=== PATIENT | female | born 1965 | race Caucasian/White ===

== ENCOUNTER 2017-09-08 00:35 | Emergency (ER) | payer BC, SELFPAY ==
[2017-09-08 00:37] VITALS: BP 152/84; PULSE 77; RESP 16; TEMP 36.6; O2SAT 97; BMI 28.3
[2017-09-08 00:40] VITALS: O2SAT 98
--- NOTE | 2017-09-08 00:54 | RAD_ITS ---
STUDY: X-RAY CHEST REASON FOR EXAM: Female, 52 years old. Shortness of breath. History of asthma and COPD. TECHNIQUE: PA and lateral chest. COMPARISON: None. FINDINGS: Lungs are hyperinflated. Subtle patchy mid and lower lung opacities probably representing subsegmental atelectasis. No effusions. No pneumothorax. Possible pleural scar left lung apex. Normal size heart. Normal mediastinum and aurea. Normal visualized pulmonary arteries. Normal visualized aortic arch and descending thoracic aorta. Normal visualized thoracic spine. Normal visualized ribs, clavicles, and shoulders. There is no demonstrated abnormality of the visualized soft tissue structures of the upper abdomen. RAD/Chest PA and Lateral IMPRESSION: No acute cardiopulmonary disease. Hyperinflation suggestive of COPD. Left apical density probably representing pleural scar. If old studies are not available to assess stability recommend correlation with nonemergent noncontrast CT chest. Electronically Signed: Sukh Anton MD at 2:21 EDT , Service support ,
--- NOTE | 2017-09-08 00:54 | EKG12_ITS ---
Test Reason : SOB Blood Pressure : / mmHG Vent. Rate : 072 BPM Atrial Rate : 072 BPM P-R Int : 142 ms QRS Dur : 086 ms QT Int : 402 ms P-R-T Axes : 066 080 031 degrees QTc Int : 440 ms Normal sinus rhythm Normal ECG Confirmed by MARLEN ARAMBULA ([id number]), editor publications TOM MATTHEWS ([id number]) on 09/21/2017 5:30:00 PM Referred By: CARLY Confirmed By:MARLEN ARAMBULA
[2017-09-08 01:01] VITALS: O2SAT 97
[2017-09-08 01:01] LABS: Absolute Lymphocyte Count 2.23 X10^3/ul (0.83-4.51); Basophil# 0.06 X10^3/uL; Basophil% 0.5 % (0-1); Eosinophil# 0.24 X10^3/uL; Hematocrit 39.5 % (37-47); Hemoglobin 13.4 g/dl (12.0-15.0); Lymphocyte # 2.23 X10^3/ul (4.0); Lymphocyte % 18.2 % (19-41); Mean Corp Hgb Conc 33.9 g/gl (32-36); Mean Corpuscular Hgb 28.7 pg (27.0-32.0); Mean Corpuscular Volume 84.6 fL (81-99); Mean Platelet Vol. 9.5 fl (6.2-12.0); Monocyte# 0.78 X10^3/uL; Monocyte% 6.4 % (0-10); Neutrophil # 8.95 X10^3/uL (2.7-7.7); Neutrophil % 72.7 % (47-70); Platelet Count 329 K/mm3 (150-450); RBC Distribution Width CV 12.6 % (11.6-14.6); RBC Distribution Width SD 38.5 fl (35.1-43.9); Red Blood Count 4.67 M/mm3 (4.2-5.4); White Blood Count 12.3 K/mm3 (4.4-11.0)
[2017-09-08 01:02] LABS: POSITIVE COUNT NO; POSITIVE DIFFERENTIAL NO; POSITIVE MORPHOLOGY NO
[2017-09-08] MEDS: Aspirin 81 MG TAB.CHEW 324 MG PO (01:21)
[2017-09-08 01:24] LABS: Anion Gap 8 (5-15); BUN 5 mg/dL (7-18); Calcium,Total 8.3 mg/dL (8.5-10.1); Chloride 107 mmol/L (98-107); EST Glomerular Filtration Rate 62 mL/min (>60); Est Glom Filt Rate - Afr Amer 75 mL/min (>60); Estimated Creatinine Clearance 50.22 ml/min; Glucose 97 mg/dL (74-106); Potassium 3.1 mmol/L (3.5-5.1); Sodium Level 138 mmol/L (136-145)
--- NOTE | 2017-09-08 02:36 | ED.DCSUM_ITS ---
- ER Visit Summary Date of Service: 09/08/17 Chief Complaint: Shortness of breath History of Present Illness: The patient is a 52 F who presents with chest pain and shortness of breath. She was at work. She was doing light activity. 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 She had sudden onset of shortness of breath and chest pressure. She states it was very hot in the shop she was working. She describes her symptoms as it felt like someone was sitting on my chest. She states she became very diaphoretic and had near syncopal episode. She denies any vomiting. She has had some recent diarrhea. She denies any recent illness. A family history of coronary disease. She states that her mother of CHF and first began to have heart problems in her 50s. She is also a smoker and has a history of high cholesterol. Physical Examination: Afebrile vitals are stable Moist because membranes Heart regular rate and rhythm Lungs are clear Abdomen soft Normal color Alert Test Results: EKG shows sinus rhythm at a rate of 72. Labs notable for white blood cell count 12.3, potassium 3.1. Chest x-ray shows likely pleural scarring no acute process. Emergency Department Course and Treatment: She was placed on the manager monitoring and given aspirin. Given her chest pain shortness of breath diaphoresis near syncope I am concerned that this may have been angina. She does have risk factors. Her MADDISON risk score is 1 but her heart score is 4. Therefore I do feel she should be admitted for repeat enzymes serial EKGs and possible stress testing. Treatment Plan: [] Disposition: Admit Impression: Chest pain Shortness of breath This note was generated with [employer]or Be[employer] dictation software. It may contain incorrect words, spelling, and punctuation that were not noted in review of the chart prior to signing ED Disposition - Plan for ED Patient: Chief Complaint: Shortness of Breath Referrals: Care Physician,No Primary [Primary Care Provider] -
--- NOTE | 2017-09-08 02:55 | EKG12_ITS ---
Test Reason : REPEAT CP Blood Pressure : / mmHG Vent. Rate : 057 BPM Atrial Rate : 057 BPM P-R Int : 144 ms QRS Dur : 096 ms QT Int : 438 ms P-R-T Axes : 074 078 041 degrees QTc Int : 426 ms Sinus bradycardia Otherwise normal ECG Confirmed by MARLEN ARAMBULA ([id number]), design editor TOM MATTHEWS ([id number]) on 09/21/2017 5:30:38 PM Referred By: CARLY Confirmed By:MARLEN ARAMBULA
[2017-09-08 03:09] VITALS: BP 146/76; PULSE 65; RESP 16; O2SAT 98
--- NOTE | 2017-09-08 04:51 | ED.DEP ---
ED Disposition - Plan for ED Patient: Chief Complaint: Shortness of Breath Instructions: Warning Signs of a Heart Attack Prescriptions: Albuterol Inhaler [Ventolin Hfa] 1 - 2 puff INHALATION Q4H PRN PRN #1 inhaler PRN Reason: Wheezing Referrals: Care Physician,No Primary [Primary Care Provider] - Nick Landa MD [STAFF PHYSICIAN] -
[2017-09-08 04:53] VITALS: BP 131/87; PULSE 88; RESP 16; O2SAT 97
--- NOTE | 2017-09-09 15:01 | CM.ED ---
ED CALLBACK: Follow-up call placed to patient. No answer and no voicemail option offered.
== END 2017-09-08 04:57 | disposition home or self-care (01) ==
LOC: ED 01:05
PROVIDERS: Emergency Provider Emergency Medicine
DX: R07.9 Chest pain, unspecified (principal); R06.02 Shortness of breath; E78.00 Pure hypercholesterolemia, unspecified; J44.9 Chronic obstructive pulmonary disease, unspecified; F17.200 Nicotine dependence, unspecified, uncomplicated; Z82.49 Family history of ischemic heart disease and other diseases of the circulatory system
CPT/HCPCS: 71046; 80048; 84484; 85025; 93005; 99285; A4216

== ENCOUNTER 2019-02-23 10:16 | Emergency (ER) | payer SELFPAY ==
[2019-02-23 10:18] VITALS: BP 134/84; PULSE 85; RESP 32; TEMP 36.6; O2SAT 97; BMI 25.2
--- NOTE | 2019-02-23 10:29 | RAD_ITS ---
STUDY: X-RAY CHEST REASON FOR EXAM: Female, 53 years old. Chest pressure. TECHNIQUE: Single AP portable view of the chest. COMPARISON: Comparison is made with prior study dated September 08, 2017. FINDINGS: EKG electrodes are seen. The lungs are clear and expanded. There is no demonstrated pleural abnormality. Normal size heart. Normal mediastinum and aurea. Normal visualized pulmonary arteries. Normal visualized aortic arch and descending thoracic aorta. Normal visualized thoracic spine. Normal visualized ribs, clavicles, and shoulders. There is no demonstrated abnormality of the visualized soft tissue structures of the upper abdomen. RAD/Chest 1 View (Portable) IMPRESSION: Normal x-ray examination of the chest. Electronically Signed: Torito Blakely, at 11:01 EST , Service support ,
--- NOTE | 2019-02-23 10:29 | EKG12_ITS ---
Test Reason : REPEAT Blood Pressure : / mmHG Vent. Rate : 060 BPM Atrial Rate : 060 BPM P-R Int : 130 ms QRS Dur : 088 ms QT Int : 412 ms P-R-T Axes : 070 073 030 degrees QTc Int : 412 ms Normal sinus rhythm Normal ECG Confirmed by THERESA CAMILO, CRISTHIAN ([id number]), acquisition editor TOM MATTHEWS ([id number]) on 03/01/2019 1:09:01 PM Referred By: FOREST Confirmed By:SHAD CARDENAS MD
--- NOTE | 2019-02-23 10:30 | ED.VIS.GEN ---
History of Present Illness Chief Complaint: Chest Pain Informant: Patient Onset: Today Context: Sudden Onset Current Severity: Moderate Maximum Severity: Severe Narrative: Patient presents with rather rapid onset of chest pain which she describes as a heaviness and pressure in the mid portion of her chest as if someone is pushing on her chest. She also feels short of breath. She states she was at work at the time but not doing anything excessive and not exposed to any chemicals. She states after the pain started her whole body felt numb. She denies any personal history of cardiac disease but states both parents had problems with her heart. Patient does admit to a history of high cholesterol and COPD. - Past Medical History (1) COPD (chronic obstructive pulmonary disease) Status: Chronic (2) High cholesterol Status: Chronic Past Medical History - Allergies and Home Meds Allergies/Adverse Reactions: Allergies Penicillins [PCN] Allergy (Verified 02/23/19 10:17) Unknown Sulfa (Sulfonamide Antibiotics) Allergy (Verified 02/23/19 10:17) Unknown tramadol Allergy (Verified 02/23/19 10:17) Unknown Primary Care Physician: Jurgen Neves MD [STAFF PHYSICIAN] - As soon as possible Prior records reviewed: Yes Smoking Status: Current every day smoker Review of Systems General: Denies: Chills, Fever Eyes: Denies: Visual changes - bilaterally ENT: Denies: Bilateral ear pain Cardiovascular: Reports: Chest pain. Denies: Palpitations Respiratory: Reports: Dyspnea. Denies: Cough Gastrointestinal: Denies: Abdominal pain, Nausea, Vomiting Musculoskeletal: Denies: Back pain, Extremity Pain Skin: Denies: Rash Neurological: Reports: Numbness Hematologic: Denies: Easy bruising, Easy bleeding Allergy: Denies: Uticaria Physical Exam Vital Signs/Narrative: Vital Signs Temp Pulse Resp BP Pulse Ox 02/23/19 10:18 97.8 F 85 32 H 134/84 H 97 Inital Vital Signs reviewed: Yes General: Well nourished, Well developed Head: Normocephalic ENT: Moist mucous membranes Neck: Supple Cardiovascular: Regular rate, Regular rhythm Respiratory: No distress, CTA bilaterally Abdomen: Soft, Nontender Extremities: Nontender, No edema Skin: Normal color Neurological: Alert, Oriented x3, Normal Strength, Normal Sensation, - - Strong and equal pulses throughout. Psychological: - - Anxious Diagnostic/Tx/Re-eval Impressions Chest X-Ray 02/23/19 10:29 IMPRESSION: Normal x-ray examination of the chest. Electronically Signed: Torito Blakely, at 11:01 EST , Service support , 02/23/19 10:29 Chest 1 View (Portable) [RAD] Stat Laboratory Results 02/23/19 02/23/19 02/23/19 10:55 10:55 10:55 WBC 8.8 RBC 5.06 Hgb 14.6 Hct 43.4 MCV 85.8 MCH 28.9 MCHC 33.6 RDW Std Deviation 42.2 RDW Coeff of Gabe 13.5 Plt Count 309 MPV 8.8 Immature Gran % (Auto) 0.200 Neut % (Auto) 68.9 Lymph % (Auto) 22.8 [place] % (Auto) 6.6 Eos % (Auto) 0.9 Baso % (Auto) 0.6 Absolute Neuts (auto) 6.1 Absolute Lymphs (auto) 2.01 Nucleated RBC % 0 D-Dimer Quant (PE/DVT) 0.41 Sodium 137 Potassium 3.7 Chloride 108 H Carbon Dioxide 26.0 Anion Gap 3 L BUN 6 L Creatinine 0.80 Estim Creat Clear Calc 62.07 Est GFR (MDRD) Af Amer 96 Est GFR (MDRD) Non-Af 80 BUN/Creatinine Ratio 7.5 L Glucose 89 Calcium 8.6 Troponin I < 0.015 02/23/19 14:05 WBC RBC Hgb Hct MCV MCH MCHC RDW Std Deviation RDW Coeff of Gabe Plt Count MPV Immature Gran % (Auto) Neut % (Auto) Lymph % (Auto) [place] % (Auto) Eos % (Auto) Baso % (Auto) Absolute Neuts (auto) Absolute Lymphs (auto) Nucleated RBC % D-Dimer Quant (PE/DVT) Sodium Potassium Chloride Carbon Dioxide Anion Gap BUN Creatinine Estim Creat Clear Calc Est GFR (MDRD) Af Amer Est GFR (MDRD) Non-Af BUN/Creatinine Ratio Glucose Calcium Troponin I < 0.015 - EKG Initial EKG Interpretation: Sinus Rhythm - Sinus at 81 with no acute ischemia. Follow-up EKG Interpretation: Sinus Rhythm - Sinus at 60 with no acute ischemia. - Medical Decision Making Patient was given aspirin 1 nitro with EMS. She was given 1 additional nitro here. Repeat evaluation she is resting comfortably. I discussed with her my desire to admit to the hospital for further cardiac work-up but she has no one available to watch her teenage daughter. She did agree to stay for a 3-hour repeat EKG and blood work. These are also unremarkable. Patient will be discharged at this time. She will be referred to the next doc on no doc list for follow-up. She was encouraged to return if her symptoms worsen. ED Disposition - Plan for ED Patient: Disposition: Home or Assisted Living Diagnosis: Chest pain Instructions: CHEST PAIN, Uncertain Cause Referrals: Jurgen Neves MD [STAFF PHYSICIAN] - As soon as possible
[2019-02-23 10:51] VITALS: BP 175/71; PULSE 71
[2019-02-23] MEDS: Nitroglycerin SL (ED/IMG/CATH) 0.4 MG TABLET SUBLINGUAL (10:51)
[2019-02-23] MEDS: 0.9% Normal Saline 1,000 ML 150 ML IV (10:52)
[2019-02-23 11:05] LABS: Absolute Lymphocyte Count 2.01 X10^3/uL (0.83-4.51); Absolute Neutrophil Count 6.1 X10^3/uL (2.0-7.7); Basophil# 0.05 X10^3/uL; Basophil% 0.6 % (0-1); Eosinophil# 0.08 X10^3/uL; Eosinophils% 0.9 % (0-5); Hematocrit 43.4 % (37-47); Hemoglobin 14.6 g/dL (12.0-15.0); Lymphocyte # 2.01 X10^3/ul (4.0); Lymphocyte % 22.8 % (19-41); Mean Corp Hgb Conc 33.6 g/dL (32-36); Mean Corpuscular Hgb 28.9 pg (27.0-32.0); Mean Corpuscular Volume 85.8 fL (81-99); Mean Platelet Vol. 8.8 fl (6.2-12.0); Monocyte# 0.58 X10^3/uL; Monocyte% 6.6 % (0-10); NRBC Flagged by Analyzer 0 % (0-5); Neutrophil # 6.06 X10^3/uL (2.7-7.7); Neutrophil % 68.9 % (47-70); Platelet Count 309 K/mm3 (150-450); RBC Distribution Width CV 13.5 % (11.6-14.6); RBC Distribution Width SD 42.2 fl (35.1-43.9); Red Blood Count 5.06 M/mm3 (4.2-5.4); White Blood Count 8.8 K/mm3 (4.4-11.0)
[2019-02-23 11:18] LABS: Anion Gap 3 (5-15); BUN 6 mg/dL (7-18); BUN/Creat Ratio 7.5 RATIO (10-20); Calcium,Total 8.6 mg/dL (8.5-10.1); Chloride 108 mmol/L (98-107); EST Glomerular Filtration Rate 80 mL/min (>60); Est Glom Filt Rate - Afr Amer 96 mL/min (>60); Estimated Creatinine Clearance 62.07 ml/min; Glucose 89 mg/dL (74-106); Potassium 3.7 mmol/L (3.5-5.1); Sodium Level 137 mmol/L (136-145)
[2019-02-23 11:19] LABS: D-Dimer Quantitative (DVT/PE) 0.41 FEU/ug/m (0.27-0.49)
[2019-02-23 11:54] VITALS: BP 162/88; PULSE 76; RESP 16; O2SAT 98
--- NOTE | 2019-02-23 14:00 | EKG12_ITS ---
Test Reason : CP Blood Pressure : / mmHG Vent. Rate : 081 BPM Atrial Rate : 081 BPM P-R Int : 120 ms QRS Dur : 078 ms QT Int : 364 ms P-R-T Axes : 081 082 033 degrees QTc Int : 422 ms Normal sinus rhythm Normal ECG Confirmed by THERESA CAMILO, CRISTHIAN ([id number]), editor trade journal TOM MATTHEWS ([id number]) on 03/01/2019 1:09:21 PM Referred By: REBA Confirmed By:SHAD CARDENAS MD
[2019-02-23 14:41] VITALS: BP 134/63; PULSE 72; RESP 18; O2SAT 96
[2019-02-23 15:05] VITALS: BP 149/77; PULSE 69; RESP 18; O2SAT 99
== END 2019-02-23 15:11 | disposition home or self-care (01) ==
PROVIDERS: Emergency Provider Emergency Medicine
DX: R07.89 Other chest pain (principal); R06.00 Dyspnea, unspecified; R20.0 Anesthesia of skin; J44.9 Chronic obstructive pulmonary disease, unspecified; E78.00 Pure hypercholesterolemia, unspecified; F17.200 Nicotine dependence, unspecified, uncomplicated
CPT/HCPCS: 71045; 80048; 84484; 85025; 85379; 93005; 96360; 96361; 99285; J7030; A4216

== ENCOUNTER 2019-11-25 12:04 | Emergency (ER) | payer BC, SELFPAY ==
[2019-11-25 12:06] VITALS: BP 151/100; PULSE 92; RESP 24; TEMP 36.9; O2SAT 97; BMI 26.2
--- NOTE | 2019-11-25 12:12 | CT_ITS ---
STUDY: CT ABDOMEN AND PELVIS WITHOUT CONTRAST REASON FOR EXAM: Female, 54 years old. RT FLANK PAIN ACROSS BACK X 2 HR. Hx of kidney stones, COPD and HLD RADIATION DOSAGE (If Supplied By Facility): CTDIvol = ( 6.26 ) mGy, DLP = ( 289.22 ) mGycm TECHNIQUE: Transaxial images were obtained from the dome of the diaphragm to the symphysis pubis without oral contrast, and without intravenous contrast. Sagittal and coronal images were reconstructed. Individualized dose optimization techniques were used for this CT. COMPARISON: Comparison is made with prior examination dated 04/02/2011. FINDINGS: The visualized lung bases are unremarkable. The visualized portions of the heart are within normal limits. Normal liver. Normal gallbladder and extrahepatic biliary system. There is a benign calcified granuloma of the spleen. Normal pancreas. Normal bilateral adrenal glands. Normal right kidney. Normal left kidney. There is a small hiatal hernia. Normal small intestine. Normal colon. The appendix is visualized and appears normal. There is diffuse atherosclerotic calcification of the abdominal aorta, without a demonstrated aneurysm. Normal inferior vena cava. Normal retroperitoneum. Normal urinary bladder. Normal abdominal wall. Normal osseous structures. CT/Abdomen/Pelvis without Cont IMPRESSION: Normal unenhanced CT of the abdomen and pelvis. Electronically Signed: Torito Blakely, at 12:58 EDT , Service support ,
[2019-11-25] MEDS: proMETHazine 25 MG/ML Syringe 6.25 MG IV (12:19)
[2019-11-25 12:27] LABS: Absolute Lymphocyte Count 3.11 X10^3/uL (0.83-4.51); Absolute Neutrophil Count 5.6 X10^3/uL (2.0-7.7); Basophil# 0.09 X10^3/uL; Basophil% 0.9 % (0-1); Eosinophil# 0.23 X10^3/uL; Eosinophils% 2.3 % (0-5); Hematocrit 44.1 % (37-47); Hemoglobin 14.5 g/dL (12.0-15.0); Lymphocyte # 3.11 X10^3/ul (4.0); Lymphocyte % 31.7 % (19-41); Mean Corp Hgb Conc 32.9 g/dL (32-36); Mean Corpuscular Hgb 28.7 pg (27.0-32.0); Mean Corpuscular Volume 87.3 fL (81-99); Mean Platelet Vol. 8.7 fl (6.2-12.0); Monocyte# 0.73 X10^3/uL; Monocyte% 7.4 % (0-10); NRBC Flagged by Analyzer 0 % (0-5); Neutrophil # 5.63 X10^3/uL (2.7-7.7); Neutrophil % 57.5 % (47-70); Platelet Count 451 K/mm3 (150-450); RBC Distribution Width CV 12.6 % (11.6-14.6); Red Blood Count 5.05 M/mm3 (4.2-5.4); White Blood Count 9.8 K/mm3 (4.4-11.0)
[2019-11-25] MEDS: Morphine 4 MG/ML Syringe IV (12:29)
[2019-11-25 12:43] LABS: Anion Gap 6 (5-15); BUN 4 mg/dL (7-18); BUN/Creat Ratio 3.9 RATIO (10-20); Calcium,Total 8.8 mg/dL (8.5-10.1); Chloride 106 mmol/L (98-107); Creatinine, Serum 1.03 mg/dL (0.55-1.02); EST Glomerular Filtration Rate 59 mL/min (>60); Est Glom Filt Rate - Afr Amer 72 mL/min (>60); Estimated Creatinine Clearance 47.66 ml/min; Glucose 112 mg/dL (74-106); Potassium 3.6 mmol/L (3.5-5.1); Sodium Level 138 mmol/L (136-145)
[2019-11-25 13:14] LABS: Bacteria 0 SEEN /hpf (None Seen); Mucous, Urine 0 SEEN /hpf (<or=2+); Red Blood Cells-Urine 0 SEEN /hpf (0-5); White Blood Cells 0 SEEN /hpf (0-5)
--- NOTE | 2019-11-25 13:16 | ED.VIS.GEN ---
History of Present Illness Chief Complaint: Flank Pain Informant: Patient Onset: Today Context: Sudden Onset Timing: Continuous Quality: Sharp and stabbing Location: Right flank Current Severity: Severe Maximum Severity: Severe Worsened by: Nothing Relieved by: Nothing Associated Symptoms: Denies Narrative: D4-year-old female history of kidney stones presents with right flank pain. It started suddenly about an hour prior to arrival. It is sharp and stabbing. It radiates to her right lower back. It is constant. Denies any fevers or chills, chest pain or shortness of breath, lightheadedness or dizziness, numbness tingling or weakness, loss of bowel or bladder function or urinary symptoms. No trauma. No upper respiratory symptoms. Prior similar symptoms: Yes Recent Illness/Hospitalization: No Past Medical History - Allergies and Home Meds Allergies/Adverse Reactions: Allergies Penicillins [PCN] Allergy (Verified 11/25/19 12:20) Unknown Sulfa (Sulfonamide Antibiotics) Allergy (Verified 11/25/19 12:20) Unknown tramadol Allergy (Verified 11/25/19 12:20) Unknown Primary Care Physician: Care Physician,No Primary [Primary Care Provider] - Prior records reviewed: Yes Past Medical History: - - COPD Surgical History: noncontributory Lives: With Family Smoking Status: Current every day smoker Alcohol: Occasional Drugs: None Review of Systems All systems negative except as indicated General: Denies: Chills, Fever, Sweats Eyes: Denies: Visual changes - bilaterally, Diplopia ENT: Denies: Rhinorrhea, Sore throat Cardiovascular: Denies: Chest pain, Palpitations Respiratory: Denies: Dyspnea, Cough, Dyspnea on exertion Gastrointestinal: Reports: Abdominal pain. Denies: Nausea, Vomiting, Diarrhea, Constipation, Melena, Hematochezia Genitourinary: Denies: Dysuria, Hematuria, Frequency Musculoskeletal: Reports: Back pain. Denies: Myalgias, Arthralgias, Neck pain, Swelling, Extremity Pain Skin: Denies: Rash, Wounds Neurological: Denies: Headache, Weakness, Numbness Physical Exam Vital Signs/Narrative: Vital Signs Temp Pulse Resp BP Pulse Ox 11/25/19 12:06 98.5 F 92 24 H 151/100 H 97 Inital Vital Signs reviewed: Yes General: Well nourished, Well developed, No Acute Distress Head: Normocephalic, Atraumatic Eyes: Perrl, EOMI ENT: Moist mucous membranes, No rhinorrhea Neck: Supple, Nontender Cardiovascular: Regular rate, Regular rhythm, No murmurs Respiratory: No distress, CTA bilaterally, Chest nontender Abdomen: Soft, Nontender, Nondistended, Normal bowel sounds Back: Nontender, Normal Inspection. Negative for: CVA tenderness, Spinal tenderness Extremities: Nontender, No edema Skin: Normal color, No rash Neurological: Alert, Oriented x3, Cranial nerves II-XII grossly intact, Normal Strength, Normal Sensation Psychological: Normal affect, Normal Mood Diagnostic/Tx/Re-eval Impressions Abdomen/Pelvis CT 11/25/19 12:12 IMPRESSION: Normal unenhanced CT of the abdomen and pelvis. Electronically Signed: Torito Blakely, at 12:58 EDT , Service support , 11/25/19 12:12 Abdomen/Pelvis without Cont [CT] Stat Laboratory Results 11/25/19 11/25/19 12:11 12:11 WBC 9.8 RBC 5.05 Hgb 14.5 Hct 44.1 MCV 87.3 MCH 28.7 MCHC 32.9 RDW Std Deviation 40.0 RDW Coeff of Gabe 12.6 Plt Count 451 H MPV 8.7 Immature Gran % (Auto) 0.200 Neut % (Auto) 57.5 Lymph % (Auto) 31.7 [place] % (Auto) 7.4 Eos % (Auto) 2.3 Baso % (Auto) 0.9 Absolute Neuts (auto) 5.6 Absolute Lymphs (auto) 3.11 Nucleated RBC % 0 Sodium 138 Potassium 3.6 Chloride 106 Carbon Dioxide 26.0 Anion Gap 6 BUN 4 L Creatinine 1.03 H Estim Creat Clear Calc 47.66 Est GFR (MDRD) Af Amer 72 Est GFR (MDRD) Non-Af 59 L BUN/Creatinine Ratio 3.9 L Glucose 112 H Calcium 8.8 - Medical Decision Making Due to numerous allergies patient given morphine Zofran and fluids. CBC BMP are obtained and both are unremarkable. Urinalysis negative. CT flank shows no acute findings. Repeat exam patient feels improved. Tolerating by mouth. Repeat abdominal exam soft nontender. Patient neurovascular intact. Discussed with her this likely could have been musculoskeletal pain. Will prescribe anti-inflammatories and muscle relaxers advised her to rest and ice and follow-up with her primary care physician. ED Disposition - Plan for ED Patient: Disposition: Home or Assisted Living Diagnosis: Right flank pain, COPD (chronic obstructive pulmonary disease), High cholesterol Instructions: ED Flank Pain Uncertain Cause Prescriptions: cycloBENZAPRine HCl [Flexeril] 10 mg PO TID PRN #20 tab PRN Reason: Muscle Spasm Prescription Printed Hydrocodone Bitart/Apap 5-325 [[place] 5MG-325MG] 1 tab PO Q6H PRN PRN 3 Days #10 tab PRN Reason: Pain Prescription Printed Referrals: Nick Landa MD [STAFF PHYSICIAN] -
[2019-11-25 13:19] LABS: Color, Urine Straw (Yellow); Glucose, Dipstick Normal (Normal); Ketone-Dipstick Negative (Negative); Leukocyte Esterase-Dipstick 25 /ul (Negative); Nitrite-Dipstick Negative (Negative); Occult Blood-Urine Negative /ul (Negative); Protein-Dipstick Negative (Negative); Urine Bilirubin Dipstick Negative (Negative); Urine Clarity Clear (Clear); Urine Urobilinogen Normal (Normal)
[2019-11-25] MEDS: 0.9% Normal Saline 1,000 ML 250 ML IV (13:25)
[2019-11-25 13:26] LABS: Squamous Epithelial Cells - UA 0-5 SEEN /hpf (5-10)
[2019-11-25 13:49] VITALS: PULSE 75; RESP 16; O2SAT 98
== END 2019-11-25 13:49 | disposition home or self-care (01) ==
PROVIDERS: Emergency Provider Physician Assistant Medical
DX: R10.9 Unspecified abdominal pain (principal); J44.9 Chronic obstructive pulmonary disease, unspecified; E78.00 Pure hypercholesterolemia, unspecified; F17.200 Nicotine dependence, unspecified, uncomplicated; Z87.442 Personal history of urinary calculi
CPT/HCPCS: 74176; 80048; 81001; 85025; 96374; 96375; 99284; J7030; A4216

== ENCOUNTER 2021-01-25 21:11 | Emergency (ER) | payer MEDICAID, SELFPAY ==
[2021-01-25 21:12] VITALS: BP 176/96; PULSE 94; RESP 18; TEMP 36.2; O2SAT 99; BMI 27.6
--- NOTE | 2021-01-25 21:49 | CT_ITS ---
STUDY: CT CHEST WITHOUT CONTRAST REASON FOR EXAM: Female, 55 years old. Trauma RADIATION DOSAGE (If Supplied By Facility): CTDIvol = ( 11.53 ) mGy, DLP = ( 406.35 ) mGycm TECHNIQUE: Transaxial imaging was performed without the administration of intravenous contrast material. Individualized dose optimization techniques were used for this CT. COMPARISON: None. FINDINGS: Groundglass nodules. Largest in the right upper lobe measuring 1.3 cm as well as another nodule in the right lung apex measuring 1.7 cm. In the left lung apex measuring 2.5 x 2.2 cm. Lungs are otherwise clear. No pneumothorax. There is no demonstrated pleural abnormality. Normal heart and pericardium. Normal mediastinum. Normal hilar regions. Normal unenhanced pulmonary arteries. Normal aorta arch and descending thoracic aorta. Normal osseous structures. There is no demonstrated abnormality of the visualized upper abdomen. CT/Chest without Contrast IMPRESSION: No acute traumatic findings. Nonspecific groundglass nodules in both upper lobes as above. Unlikely to represent COVID pneumonia given its appearance. Recommend repeat chest CT and 3-6 months to reevaluate Electronically Signed: Napoleon Berry DO at 0:04 EDT Tel , Service support ,
--- NOTE | 2021-01-25 21:49 | CT_ITS ---
STUDY: CT CERVICAL SPINE WITHOUT CONTRAST REASON FOR EXAM: Female, 55 years old. Trauma RADIATION DOSAGE (If Supplied By Facility): CTDIvol = ( 16.31 ) mGy, DLP = ( 306.50 ) mGycm TECHNIQUE: High resolution transaxial imaging was performed without contrast material. Sagittal and coronal images were reconstructed. Individualized dose optimization techniques were used for this CT. COMPARISON: None FINDINGS: Normal craniovertebral junction. Normal anterior atlantoaxial articulation. Normal odontoid process. Normal cervical lordosis. Normal vertebral bodies and posterior osseous elements. C2-3: Normal endplates. Normal disc height and morphology. Normal central canal and intervertebral neuroforamina. C3-4: Normal endplates. Normal disc height and morphology. Normal central canal and intervertebral neuroforamina. C4-5: Normal endplates. Normal disc height and morphology. Normal central canal and intervertebral neuroforamina. C5-6: Normal endplates. Normal disc height and morphology. Normal central canal and intervertebral neuroforamina. C6-7: Normal endplates. Normal disc height and morphology. Normal central canal and intervertebral neuroforamina. C7-T1: Normal endplates. Normal disc height and morphology. Normal central canal and intervertebral neuroforamina. Subtle patchy infiltrates in the upper lobes. CT/Spine Cervical without Contras IMPRESSION: Normal unenhanced CT examination of the cervical spine. Subtle patchy infiltrates in the upper lobes Electronically Signed: Napoleon Berry DO at 23:13 EDT Tel , Service support ,
--- NOTE | 2021-01-25 21:49 | EKG12_ITS ---
Test Reason : DYSRHYTHMIA Blood Pressure : / mmHG Vent. Rate : 072 BPM Atrial Rate : 072 BPM P-R Int : 138 ms QRS Dur : 086 ms QT Int : 394 ms P-R-T Axes : 074 081 -03 degrees QTc Int : 431 ms Normal sinus rhythm Nonspecific ST abnormality Abnormal ECG Confirmed by JACOB CAMILO, JOSHUA ([id number]), industrial editor LITZY GRAYSON ([id number]) on 01/29/2021 8:41:25 AM Referred By: BEATRICE Confirmed By:JOSHUA JAMES MD
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
--- NOTE | 2021-01-25 21:54 | RAD_ITS ---
STUDY: X-RAY - LEFT TIBIA AND FIBULA REASON FOR EXAM: Female, 55 years old. pain TECHNIQUE: 4 view(s) of the tibia and fibula were obtained. COMPARISON: None. FINDINGS: Normal visualized tibia. Normal visualized fibula. The soft tissue structures are unremarkable. RAD/Tibia & Fibula 2 Views IMPRESSION: Normal x-ray examination of the tibia and fibula. Electronically Signed: Napoleon Berry DO at 23:30 EDT Tel , Service support ,
--- NOTE | 2021-01-25 21:54 | RAD_ITS ---
STUDY: X-RAY - RIGHT SHOULDER REASON FOR EXAM: Female, 55 years old. pain TECHNIQUE: 4 view(s) of the shoulder. COMPARISON: None. FINDINGS: Normal glenohumeral articulation. There is degenerative arthrosis of the acromioclavicular joint without inferior osseous spur formation. Normal acromion. Normal humeral head and visualized proximal humerus. The soft tissue structures are unremarkable. Normal visualized pulmonary apex. RAD/Shoulder min 2 Views IMPRESSION: Mild degenerative changes without acute finding Electronically Signed: Napoleon Berry DO at 23:37 EDT Tel , Service support ,
[2021-01-25 22:07] LABS: Absolute Lymphocyte Count 2.61 X10^3/uL (0.83-4.51); Absolute Neutrophil Count 6.9 X10^3/uL (2.0-7.7); Basophil# 0.06 X10^3/uL; Basophil% 0.6 % (0-1); Eosinophil# 0.17 X10^3/uL; Eosinophils% 1.6 % (0-5); Hematocrit 42.3 % (37-47); Hemoglobin 14.5 g/dL (12.0-15.0); Lymphocyte # 2.61 X10^3/ul (0.83-4.51); Lymphocyte % 25.1 % (19-41); Mean Corp Hgb Conc 34.3 g/dL (32-36); Mean Corpuscular Hgb 29.7 pg (27.0-32.0); Mean Corpuscular Volume 86.7 fL (81-99); Mean Platelet Vol. 9.2 fl (6.2-12.0); Monocyte# 0.67 X10^3/uL; Monocyte% 6.4 % (0-10); NRBC Flagged by Analyzer 0 % (0-5); Neutrophil # 6.86 X10^3/uL (2.7-7.7); Platelet Count 395 K/mm3 (150-450); RBC Distribution Width CV 13.2 % (11.6-14.6); RBC Distribution Width SD 41.1 fl (35.1-43.9); Red Blood Count 4.88 M/mm3 (4.2-5.4); White Blood Count 10.4 K/mm3 (4.4-11.0)
[2021-01-25 22:17] LABS: Bacteria 0 SEEN /hpf (None Seen); Mucous, Urine 0 SEEN /hpf (<or=2+); Red Blood Cells-Urine 0 SEEN /hpf (0-5)
[2021-01-25 22:18] LABS: Color, Urine Yellow (Yellow); Glucose, Dipstick Normal (Normal); Ketone-Dipstick Negative (Negative); Leukocyte Esterase-Dipstick 25 /ul (Negative); Nitrite-Dipstick Negative (Negative); Occult Blood-Urine Negative /ul (Negative); Protein-Dipstick Negative (Negative); Urine Bilirubin Dipstick Negative (Negative); Urine Clarity Clear (Clear); Urine Urobilinogen Normal (Normal)
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
[2021-01-25 22:25] LABS: Squamous Epithelial Cells - UA 0-5 SEEN /hpf (5-10); White Blood Cells 0-5 SEEN /hpf (0-5)
[2021-01-25 22:28] LABS: Amphetamine Urine VISTA NEGATIVE (<1000 ng/mL); Barbiturate Urine VISTA NEGATIVE (< 200 ng/mL); Benzodiazepine Urine VISTA NEGATIVE (< 200 ng/mL); Cocaine Urine VISTA NEGATIVE (< 300 ng/mL); Ecstacy Urine VISTA NEGATIVE (< 500 ng/mL); Methadone Urine VISTA NEGATIVE (< 300 ng/mL); PCP Urine VISTA NEGATIVE (< 25 ng/mL); THC Urine VISTA NEGATIVE (< 50 ng/mL); Vista UDS pH Range 6
[2021-01-25 22:43] LABS: AST(SGOT) 14 U/L (15-37); Alanine Aminotransfer ALT/SGPT 13 U/L (13-56); Albumin, Serum 3.7 g/dL (3.2-5.0); Alkaline Phosphatase 81 U/L (45-117); Anion Gap 8 (5-15); BUN 11 mg/dL (7-18); BUN/Creat Ratio 11.1 RATIO (10-20); Chloride 106 mmol/L (98-107); Creatinine, Serum 0.99 mg/dL (0.55-1.02); EST Glomerular Filtration Rate 62 mL/min (>60); Est Glom Filt Rate - Afr Amer 75 mL/min (>60); Estimated Creatinine Clearance 49.02 ml/min; Globulin 3.9 g/dL (2.2-4.2); Glucose 101 mg/dL (74-106); Potassium 3.6 mmol/L (3.5-5.1); Protein, Total 7.6 g/dL (6.4-8.2); Sodium Level 138 mmol/L (136-145); Troponin-I HS 8 pg/mL (3.0-54.0)
[2021-01-25] MEDS: Ondansetron 4 MG/2 ML Vial IV (22:58)
[2021-01-25] MEDS: fentaNYL 100 MCG/2 ML Ampul 25 MCG IV (23:00)
[2021-01-26 00:10] VITALS: PULSE 70; RESP 18
[2021-01-26 00:34] VITALS: BP 138/68; PULSE 68; RESP 12; O2SAT 98
== END 2021-01-26 00:35 | disposition home or self-care (01) ==
PROVIDERS: Emergency Provider Student in an Organized Health Care Education/Training Program; PCP Nurse Practitioner Family
DX: S20.229A Contusion of unspecified back wall of thorax, initial encounter (principal); S40.011A Contusion of right shoulder, initial encounter; S09.90XA Unspecified injury of head, initial encounter; S80.12XA Contusion of left lower leg, initial encounter; S20.211A Contusion of right front wall of thorax, initial encounter; F17.210 Nicotine dependence, cigarettes, uncomplicated; J44.9 Chronic obstructive pulmonary disease, unspecified; V86.55XA Driver of 3- or 4- wheeled all-terrain vehicle (ATV) injured in nontraffic accident, initial encounter; Z79.899 Other long term (current) drug therapy
CPT/HCPCS: 70450; 71250; 72125; 73030; 73590; 80048; 80076; 80307; 81001; 82077; 84484; 85025; 93005; 96374; 96375; 99284; A4216; J2405